=== PATIENT | male | born 1965 | race African-American/Black ===

== ENCOUNTER 2019-02-04 18:32 | Emergency (ER) | payer OTHER ==
[~2019-02-04] VITALS: Ht 167.6 cm; Wt 68.0 kg
[~2019-02-04 18:32] MED LIST: NO HOME MEDS
[2019-02-04 22:08] LABS: ABSOLUTE NEUTROPHILS 1.9 thou/uL (1.4-8.2); BASOPHILS 0.7 % (0.0-2.0); EOSINOPHILS 1.7 % (0.0-3.0); HEMOGLOBIN 14.4 gm/dL (14.0-18.0); LYMPHOCYTES 32.7 % (24.0-44.0); MCHC 33.5 g/dL (28.0-37.0); MCV 83.5 fL (80.0-100.0); MONOCYTES 10.3 % (1.0-8.0); PLATELET COUNT 213 thou/uL (150-400); POLYS 54.6 % (36.0-66.0); RBC 5.16 mil/uL (4.50-6.00); RDW 13.9 % (10.5-14.5); WBC 3.4 thou/uL (4.0-11.0)
[2019-02-04 22:14] LABS: ANION GAP 6 mmol/L (7-16); BUN 16 mg/dL (7-18); CALCIUM 8.7 mg/dL (8.5-10.1); CHLORIDE 102 mmol/L (98-107); CO2 30 mmol/L (21-32); CREATININE 1.1 mg/dL (0.7-1.3); GLUCOSE 98 mg/dL (74-106); POTASSIUM 3.6 mmol/L (3.5-5.1); SODIUM 138 mmol/L (136-145)
[2019-02-04 22:23] LABS: TROPONIN-I <0.06 ng/mL (<0.06)
[2019-02-04] MEDS ORDERED: MOBIC7.5 MG PO (22:24)
[2019-02-04 22:54] VITALS: BP 116/79
--- NOTE | 2019-02-05 08:13 | EKG ---
[address] [place] [address] [place] [address] ELECTROCARDIOGRAM REPORT Name: ANNETTE PATRICK Room #: [facility]P [facility] [id number] ������������������ Admission: 02/04/19 ������������������ Attend Phys: Discharge: 02/04/19 ������������������ Date of : 63 Report #: [id number] ����������������������������������������������������������������� [id number] THIS REPORT FOR: //name// [facility] ED Test Date: 2019-02-04 Test Time: 20:22:14 Pat Name: ANNETTE PATRICK Department: Room: Gender: M Software Quality Specialist: KKODJOVI : 1965 Requested By: Radha Rojas Order Number: [id number] MD: Larry Currie Measurements Intervals [place] Rate: 68 P: 63 DC: 175 QRS: -62 QRSD: 91 T: 31 QT: 388 QTc: 413 Interpretive Statements Sinus rhythm Left anterior fascicular block LVH by voltage ST elev, probable normal early repol pattern Baseline wander in lead(s) V2 Compared to ECG 11/07/2010 22:07:17 Left anterior fascicular block now present ST (T wave) deviation now present Left-axis deviation no longer present Electronically Signed On 02-05-2019 8:13:18 CDT by Larry Currie [email or web address] ��������������������������������������������� <ELECTRONICALLY SIGNED> ���������������������������������������� By: Larry Currie MD ��������������������������������������������� 02/05/19812 21 21 Larry Currie MD /EPI
== END 2019-02-04 22:56 | disposition home or self-care (01) ==
LOC: ER 18:32
PROVIDERS: Nurse Practitioner Family
DX: R07.89 Other chest pain (principal)